=== PATIENT | male | born 1965 | race African-American/Black ===

== ENCOUNTER 2021-04-12 19:55 | Inpatient (IN) | payer OTHER ==
[~2021-04-12] VITALS: Ht 185.4 cm; Wt 75.8 kg
[2021-04-12 21:12] LABS: BASOPHILS % 0.4 % (0.0-2.0); EOSINOPHILS % 0.3 % (0.0-5.0); HEMATOCRIT. 43.9 % (42.0-52.0); HEMOGLOBIN. 15.1 g/dL (14.0-18.0); LYMPHOCYTES % 7.2 % (20.0-50.0); MEAN CORPUSCULAR HEMOGLOBIN 28.5 pg (28.0-32.0); MEAN CORPUSCULAR VOLUME 82.8 fL (80.0-94.0); MEAN PLATELET VOLUME 7.4 fl (7.4-10.4); MONOCYTES % 2.9 % (2.0-8.0); NEUTROPHILS % 89.2 % (40.0-76.0); PLATELET 367 x1000/uL (130-400); RED CELL DISTRIBUTION WIDTH 15.4 % (11.6-14.6)
[2021-04-12 21:16] LABS: CHLORIDE 103 mEq/L (98-107)
[2021-04-12 21:21] LABS: ETHANOL BLOOD < 10 mg/dL; PROTHROMBIN TIME 10.9 sec (9.6-11.0)
[2021-04-12 21:24] LABS: LDL CHOLESTEROL 122 mg/dL (5-100)
[2021-04-12] MEDS ORDERED: LEVETIRACETAM 1,000 MG in SODIUM CHLORIDE 0.9% 100 ML IV STA ×2 (21:27→22:26)
[2021-04-12] MEDS ORDERED: LORAZEPAM 2MG/ML CPJ IV ONE ×2 (21:30→22:30)
[2021-04-12] MEDS ORDERED: IOHEXOL-350 100 ML BOTTLE ONE (21:37)
[2021-04-12] MEDS ORDERED: ASPIRIN 300MG SUPP PR SCH (22:00)
[2021-04-12] MEDS ORDERED: LEVETIRACETAM 1000MG PREMIX 100 ML IV SCH (22:00)
[2021-04-12] MEDS ORDERED: MAGNESIUM/ALUMINUM HYDROXIDE/SIMETHICONE 30ML UDC PO PRN (23:15)
[2021-04-12] MEDS ORDERED: DIPHENHYDRAMINE 50MG/ML VIAL IV PRN (23:15)
[2021-04-12] MEDS ORDERED: ONDANSETRON HCL 4MG/2ML INJ IV PRN (23:15)
[2021-04-12] MEDS ORDERED: ZOLPIDEM TARTRATE 5MG TABLET PO PRN (23:15)
[2021-04-12] MEDS ORDERED: GUAIFENESIN 200MG/10ML SUGAR FREE UDC PO PRN (23:15)
[2021-04-12] MEDS ORDERED: LORAZEPAM 2MG/ML CPJ IV PRN (23:15)
[2021-04-12] MEDS ORDERED: ACETAMINOPHEN 325MG TABLET PO PRN (23:15)
[2021-04-13 01:00] VITALS: BP_SYST 197; BP_SYST 230; BP_DIAS 105; BP_DIAS 139
[2021-04-13] MEDS: HYDRALAZINE 20MG/ML VIAL IV PRN ×2 (01:08→08:48)
[2021-04-13] MEDS ORDERED: DILTIAZEM HCL 5MG/ML 5ML VIAL IV SCH (02:15)
[2021-04-13 04:00] VITALS: BP 157/96
[2021-04-13] MEDS ORDERED: CLON0.3T PO (04:07)
[2021-04-13] MEDS ORDERED: OXYB5TAB17 PO (04:07)
[2021-04-13] MEDS ORDERED: FOLI-43 PO (04:07)
[2021-04-13] MEDS ORDERED: AMPH20TA3 MT (04:07)
[2021-04-13] MEDS ORDERED: EPLE50TA9 PO (04:07)
[2021-04-13] MEDS ORDERED: SPIR100T5 PO (04:07)
[2021-04-13] MEDS ORDERED: AMLO10TA4 PO (04:07)
[2021-04-13] MEDS ORDERED: LISI40TA13 PO (04:07)
[2021-04-13] MEDS: SODIUM CHLORIDE 0.9% INJ 3ML FLUSH IVF SCH ×3 (05:48→22:00)
[2021-04-13 06:09] LABS: CHLORIDE 104 mEq/L (98-107)
[2021-04-13 06:18] LABS: T4 FREE 0.96 ng/dL (0.76-1.46)
[2021-04-13 06:43] LABS: HEMATOCRIT. 42.8 % (42.0-52.0); MEAN CORPUSCULAR HEMOGLOBIN 28.8 pg (28.0-32.0); MEAN CORPUSCULAR VOLUME 82.3 fL (80.0-94.0); MEAN PLATELET VOLUME 7.7 fl (7.4-10.4); PLATELET 377 x1000/uL (130-400); RED BLOOD CELL COUNT 5.21 mill/uL (4.7-6.1)
[2021-04-13 07:45] LABS: PLATELET ESTIMATE NORMAL
[2021-04-13 08:00] VITALS: BP 175/101
[2021-04-13] MEDS: ASPIRIN 81MG EC TABLET PO SCH (08:47)
[2021-04-13] MEDS ORDERED: ENOXAPARIN 40MG/0.4ML SYR SUBCUT SCH (09:00)
[2021-04-13] MEDS ORDERED: LEVETIRACETAM 500MG PREMIX 100 ML IV SCH (09:00)
[2021-04-13] MEDS: DILTIAZEM HCL 5MG/ML 5ML VIAL IV PRN (09:29)
[2021-04-13] MEDS ORDERED: POTASSIUM CHLORIDE 20MEQ TABLET SR PO NR (11:00)
[2021-04-13] MEDS: DILTIAZEM HCL 60MG TABLET PO SCH ×3 (11:26→23:01)
[2021-04-13] MEDS: CLONIDINE 0.2MG TABLET PO SCH ×3 (11:26→23:01)
[2021-04-13 12:00] VITALS: BP 129/87
[2021-04-13 16:00] VITALS: BP 126/81
[2021-04-13 20:00] VITALS: BP 119/79
[2021-04-13] MEDS ORDERED: ENOXAPARIN 60MG/0.6ML SYR SUBCUT NR (20:00)
[2021-04-13] MEDS: LEVETIRACETAM 500MG PREMIX 100 ML IV SCH (20:28)
[2021-04-13] MEDS: OXYBUTYNIN CHLORIDE 5MG TABLET PO SCH (20:32)
[2021-04-13] MEDS ORDERED: ATORVASTATIN CALCIUM 20MG TABLET PO SCH (21:00)
[2021-04-14] VITALS (8 sets, daily range): BP systolic 108–146; BP diastolic 63–85
[2021-04-14] MEDS: SODIUM CHLORIDE 0.9% INJ 3ML FLUSH IVF SCH ×3 (06:04→22:09)
[2021-04-14] MEDS: CLONIDINE 0.2MG TABLET PO SCH ×2 (06:39→10:31)
[2021-04-14] MEDS: DILTIAZEM HCL 60MG TABLET PO SCH ×4 (06:40→22:08)
[2021-04-14 06:53] LABS: BASOPHILS % 0.7 % (0.0-2.0); EOSINOPHILS % 3.1 % (0.0-5.0); HEMATOCRIT. 38.1 % (42.0-52.0); HEMOGLOBIN. 13.3 g/dL (14.0-18.0); LYMPHOCYTES % 25.8 % (20.0-50.0); MEAN CORPUSCULAR HEMOGLOBIN 28.8 pg (28.0-32.0); MEAN CORPUSCULAR VOLUME 82.2 fL (80.0-94.0); MEAN PLATELET VOLUME 7.8 fl (7.4-10.4); MONOCYTES % 7.5 % (2.0-8.0); NEUTROPHILS % 62.9 % (40.0-76.0); PLATELET 320 x1000/uL (130-400); RED BLOOD CELL COUNT 4.64 mill/uL (4.7-6.1); RED CELL DISTRIBUTION WIDTH 15.7 % (11.6-14.6)
[2021-04-14] MEDS ORDERED: ENOXAPARIN 60MG/0.6ML SYR SUBCUT NR (08:00)
[2021-04-14] MEDS: ASPIRIN 81MG EC TABLET PO SCH (08:00)
[2021-04-14] MEDS: LEVETIRACETAM 500MG PREMIX 100 ML IV SCH (08:00)
[2021-04-14] MEDS: OXYBUTYNIN CHLORIDE 5MG TABLET PO SCH (08:01)
[2021-04-14 10:19] LABS: BASOPHILS % 0.7 % (0.0-2.0); EOSINOPHILS % 3.4 % (0.0-5.0); HEMATOCRIT. 38.4 % (42.0-52.0); HEMOGLOBIN. 13.4 g/dL (14.0-18.0); LYMPHOCYTES % 21.7 % (20.0-50.0); MEAN CORPUSCULAR HEMOGLOBIN 28.9 pg (28.0-32.0); MEAN CORPUSCULAR VOLUME 82.5 fL (80.0-94.0); MEAN PLATELET VOLUME 7.4 fl (7.4-10.4); MONOCYTES % 4.6 % (2.0-8.0); NEUTROPHILS % 69.6 % (40.0-76.0); PLATELET 330 x1000/uL (130-400); RED BLOOD CELL COUNT 4.66 mill/uL (4.7-6.1); RED CELL DISTRIBUTION WIDTH 15.5 % (11.6-14.6)
[2021-04-14] MEDS: AMIODARONE HCL 200 MG TABLET PO SCH ×2 (12:05→22:08)
[2021-04-14 12:43] LABS: CLARITY URINE CLOUDY (CLEAR); KETONES URINE TRACE (NEGATIVE); LEUKOCYTE ESTERASE URINE NEGATIVE (NEGATIVE); NITRITE URINE NEGATIVE (NEGATIVE); OCCULT BLOOD URINE 3+ (NEGATIVE); PH URINE 6.5 (4.5-8.0); PROTEIN URINE 3+ (NEGATIVE); SPECIFIC GRAVITY URINE 1.032 (1.005-1.030); UROBILINOGEN URINE 0.2 E.U./dL (0.2-1.0)
[2021-04-14 12:44] LABS: COLOR URINE BLOODY (YELLOW)
[2021-04-14 12:52] LABS: *AMPHETAMINES SCREEN URINE PRESUMTIVE POSITIVE (NEGATIVE); *BARBITURATES SCREEN URINE NEGATIVE (NEGATIVE); *BENZODIAZEPINES SCREEN URINE NEGATIVE (NEGATIVE); *COCAINE SCREEN URINE NEGATIVE (NEGATIVE); METHADONE URINE SCREEN NEGATIVE (NEGATIVE); OPIATES URINE SCREEN NEGATIVE (NEGATIVE)
[2021-04-14 12:53] LABS: PHENCYCLIDINE URINE SCREEN NEGATIVE (NEGATIVE)
[2021-04-14 13:00] LABS: CANNABINOID URINE SCREEN NEGATIVE (NEGATIVE)
[2021-04-14] MEDS: FINASTERIDE 5MG TABLET PO SCH (13:50)
[2021-04-14] MEDS: TAMSULOSIN HCL 0.4MG SR CAPSULE PO SCH ×2 (13:51→22:07)
[2021-04-14] MEDS: DILTIAZEM HCL 5MG/ML 5ML VIAL IV PRN (16:26)
[2021-04-14] MEDS: DEXT 5%/0.45% NACL 1000ML 1,000 ML IV SCH (19:53)
[2021-04-14] MEDS ORDERED: LEVOFLOXACIN 500MG PREMIX 100 ML IV NR (20:00)
[2021-04-14] MEDS: ATORVASTATIN CALCIUM 40MG TABLET PO SCH (22:08)
[2021-04-14] MEDS: LEVETIRACETAM 500MG TABLET PO SCH (22:08)
[2021-04-15] VITALS (7 sets, daily range): BP systolic 107–149; BP diastolic 71–116
[2021-04-15] MEDS: DILTIAZEM HCL 60MG TABLET PO SCH ×3 (05:15→21:55)
[2021-04-15] MEDS: SODIUM CHLORIDE 0.9% INJ 3ML FLUSH IVF SCH ×3 (05:15→21:56)
[2021-04-15] MEDS: ACETAMINOPHEN 325MG TABLET PO PRN (05:25)
[2021-04-15] MEDS: TAMSULOSIN HCL 0.4MG SR CAPSULE PO SCH ×2 (08:01→21:56)
[2021-04-15] MEDS: AMIODARONE HCL 200 MG TABLET PO SCH ×2 (08:01→21:55)
[2021-04-15] MEDS: LEVETIRACETAM 500MG TABLET PO SCH ×2 (08:01→21:55)
[2021-04-15] MEDS: FINASTERIDE 5MG TABLET PO SCH (08:01)
[2021-04-15 08:24] LABS: HEMATOCRIT. 36.6 % (42.0-52.0); HEMOGLOBIN. 12.8 g/dL (14.0-18.0); MEAN CORPUSCULAR HEMOGLOBIN 28.8 pg (28.0-32.0); MEAN CORPUSCULAR VOLUME 82.2 fL (80.0-94.0); PLATELET 254 x1000/uL (130-400); RED BLOOD CELL COUNT 4.46 mill/uL (4.7-6.1); RED CELL DISTRIBUTION WIDTH 15.5 % (11.6-14.6)
[2021-04-15 08:42] LABS: CHLORIDE 104 mEq/L (98-107)
[2021-04-15] MEDS ORDERED: LEVOFLOXACIN 250MG PREMIX 50 ML IV SCH (11:00)
[2021-04-15] MEDS: DEXT 5%/0.45% NACL 1000ML 1,000 ML IV SCH (16:03)
[2021-04-15] MEDS: CEFEPIME 2,000 MG in DEXT 5% WATER 100 ML IV SCH (17:34)
[2021-04-15] MEDS: ATORVASTATIN CALCIUM 40MG TABLET PO SCH (21:55)
[2021-04-15] MEDS: HYDRALAZINE 20MG/ML VIAL IV PRN (22:45)
[2021-04-15 23:45] LABS: PLATELET ESTIMATE NORMAL
[2021-04-16] VITALS (7 sets, daily range): BP systolic 123–174; BP diastolic 55–91
[2021-04-16] MEDS: CLONIDINE 0.1MG TABLET PO PRN (02:16)
[2021-04-16] MEDS: CEFEPIME 2,000 MG in DEXT 5% WATER 100 ML IV SCH ×2 (05:10→17:30)
[2021-04-16] MEDS: DILTIAZEM HCL 60MG TABLET PO SCH ×3 (05:11→21:26)
[2021-04-16] MEDS: ACETAMINOPHEN 325MG TABLET PO PRN (05:11)
[2021-04-16] MEDS: SODIUM CHLORIDE 0.9% INJ 3ML FLUSH IVF SCH ×3 (05:21→21:06)
[2021-04-16] MEDS: AMIODARONE HCL 200 MG TABLET PO SCH ×2 (08:28→20:46)
[2021-04-16] MEDS: LEVETIRACETAM 500MG TABLET PO SCH ×2 (08:28→20:46)
[2021-04-16] MEDS: FINASTERIDE 5MG TABLET PO SCH (08:28)
[2021-04-16] MEDS: TAMSULOSIN HCL 0.4MG SR CAPSULE PO SCH ×2 (08:28→20:46)
[2021-04-16] MEDS: ATORVASTATIN CALCIUM 40MG TABLET PO SCH (20:45)
[2021-04-17] VITALS: BP 145/85
[2021-04-17 04:00] VITALS: BP 156/94
[2021-04-17] MEDS: CLONIDINE 0.1MG TABLET PO PRN (04:05)
[2021-04-17] MEDS: DILTIAZEM HCL 60MG TABLET PO SCH ×2 (05:50→14:16)
[2021-04-17] MEDS: CEFEPIME 2,000 MG in DEXT 5% WATER 100 ML IV SCH (05:50)
[2021-04-17] MEDS: SODIUM CHLORIDE 0.9% INJ 3ML FLUSH IVF SCH ×2 (05:50→14:18)
[2021-04-17 06:59] LABS: BASOPHILS % 0.4 % (0.0-2.0); EOSINOPHILS % 3.6 % (0.0-5.0); HEMATOCRIT. 37.5 % (42.0-52.0); HEMOGLOBIN. 13.2 g/dL (14.0-18.0); LYMPHOCYTES % 10.3 % (20.0-50.0); MEAN CORPUSCULAR HEMOGLOBIN 28.3 pg (28.0-32.0); MEAN CORPUSCULAR VOLUME 80.6 fL (80.0-94.0); MEAN PLATELET VOLUME 8.6 fl (7.4-10.4); MONOCYTES % 8.5 % (2.0-8.0); NEUTROPHILS % 77.2 % (40.0-76.0); PLATELET 275 x1000/uL (130-400); RED BLOOD CELL COUNT 4.65 mill/uL (4.7-6.1); RED CELL DISTRIBUTION WIDTH 15.2 % (11.6-14.6)
[2021-04-17 07:09] LABS: CHLORIDE 101 mEq/L (98-107)
[2021-04-17 08:20] VITALS: BP 174/97
[2021-04-17] MEDS: TAMSULOSIN HCL 0.4MG SR CAPSULE PO SCH (08:42)
[2021-04-17] MEDS: AMIODARONE HCL 200 MG TABLET PO SCH (08:43)
[2021-04-17] MEDS: LEVETIRACETAM 500MG TABLET PO SCH (08:43)
[2021-04-17] MEDS: FINASTERIDE 5MG TABLET PO SCH (08:43)
[2021-04-17 12:00] VITALS: BP 131/81
[2021-04-17 15:33] VITALS: BP 131/81
[2021-04-18] MEDS ORDERED: CEFEPIME 2 GM IV SCH (06:00)
[2021-04-18] MEDS ORDERED: CEFEPIME 2,000 MG in DEXTROSE 5% WATER 50 ML IV SCH (06:00)
== END 2021-04-17 17:34 | disposition home or self-care (01) | DRG 871 ==
LOC: ER 19:55 → EDBD 19:55 → EDBEDREQSVC 21:50 → EDBEDREQ 21:50 → EDBEDREQTM 21:50 → EDBEDREQSVC 22:31 → ENRESERV 23:31 → 5EST 04-13 00:05 → 5WST 04-16 22:03
PROVIDERS: ADMIT Internal Medicine; ATTEND Internal Medicine
PROC: 4A10X4Z Monitoring of Central Nervous Electrical Activity, External Approach (ICD-10-PCS; principal; 2021-04-14)
DX: A41.9 Sepsis, unspecified organism (principal); I63.81 Other cerebral infarction due to occlusion or stenosis of small artery; I31.3 Pericardial effusion (noninflammatory); N17.9 Acute kidney failure, unspecified; N39.0 Urinary tract infection, site not specified; G81.94 Hemiplegia, unspecified affecting left nondominant side; G40.909 Epilepsy, unspecified, not intractable, without status epilepticus; I45.10 Unspecified right bundle-branch block; I16.0 Hypertensive urgency; I11.9 Hypertensive heart disease without heart failure; N40.1 Benign prostatic hyperplasia with lower urinary tract symptoms; R33.8 Other retention of urine; R47.1 Dysarthria and anarthria; Z82.3 Family history of stroke; Z82.49 Family history of ischemic heart disease and other diseases of the circulatory system; Z85.46 Personal history of malignant neoplasm of prostate; Z92.3 Personal history of irradiation; Z79.899 Other long term (current) drug therapy; Z83.3 Family history of diabetes mellitus; Z87.440 Personal history of urinary (tract) infections
CPT/HCPCS: 36415; 70496; 70498; 70551; 71045; 80048; 80053; 80061; 80305; 80320; 81003; 82962; 83721; 83735; 84145; 84439; 84443; 84480; 84484; 85025; 87077; 87186; 93005; 93306; 95816; 97162; 97166; 99285; J0360; J0692; J1650; J1953; J1956; J2060; J3490; J7050; J7060; Q9967; A4315; G0480